=== PATIENT | male | born 1955 | race Caucasian/White ===

== ENCOUNTER 2021-08-28 07:21 | Day surgery (SDC) | payer OTHER ==
--- NOTE | 2021-08-25 11:58 | RAD REPORT ---
EXAM DESCRIPTION: RAD - Chest Pa And Lat (2 Views) - 08/25/2021 11:52 am CLINICAL HISTORY: PREOP SAME DAY SURGERY BED 7 COMPARISON: No comparisons FINDINGS: Lines: None. Lungs: No evidence of edema or pneumonia. Pleural: No significant pleural effusions or pneumothorax. Cardiac: The heart size is within normal limits. Bones: No acute fractures. Other: IMPRESSION: No acute cardiopulmonary disease.
[2021-08-25 12:44] LABS: Absolute Lymphocytes (CBC) 1.6 K/uL (0.7-4.9); Basophils % 0.9 % (0-1.3); Hematocrit 42.5 % (39.6-49.0); Lymphocytes % 25.7 % (15.3-44.8); MPV 8.4 fL (7.6-11.3); RBC Red Blood Cell Count 4.84 M/uL (4.33-5.43)
[2021-08-25 12:51] LABS: Potassium 4.9 mmol/L (3.5-5.1)
[2021-08-28] MEDS: Ringers Lactate 1,000 ML IV ONE ×2 (08:10→08:23)
[2021-08-28] MEDS ORDERED: propofoL 200 MG/20 ML VIAL IV ONE (08:41)
[2021-08-28] MEDS ORDERED: LIDOCAINE 1% MPF 5 ML VIAL ONE (08:41)
--- NOTE | 2021-08-28 09:01 | ENDO RPT ---
[address], [address] COLONOSCOPY PROCEDURE REPORT EXAM DATE: 08/28/2021 PATIENT NAME: Royal Azar MR #: [id number] BIRTHDATE: 1955 ATTENDING: Chencho Schafer M.D. STATUS: outpatient KENNEL OPERATOR: Yarely Olivas RN and Thu Logan CST INDICATIONS: The patient is a 65 yr old Male here for a colonoscopy due to Cologuard Positive Test PROCEDURE PERFORMED: Colonoscopy MEDICATIONS: Per Anesthesia. ESTIMATED BLOOD LOSS: None CONSENT: The patient understands the risks and benefits of the procedure and understands that these risks include, but are not limited to: sedation, allergic reaction, infection, perforation and/or bleeding. Alternative means of evaluation and treatment include, among others: physical exam, x-rays, and/or surgical intervention. The patient elects to proceed with this endoscopic procedure. DESCRIPTION OF PROCEDURE: During intra-op preparation period all mechanical medical equipment was checked for proper function. Hand hygiene and appropriate measures for infection prevention was taken. Procedure, possible complications, alternatives including, but not limited to possibility of bleeding, perforation, tear, infection, sepsis, need for surgery, need for blood transfusion, were explained to the patient. After the risks, benefits and alternatives of the procedure were thoroughly explained, Informed consent was verified, confirmed and timeout was successfully executed by the treatment team. The patient was placed in the left lateral position. A digital rectal exam was performed and revealed an enlarged prostate. After appropriate level of anesthesia, the scope was passed. The EC-[id number] ([id number]) endoscope was introduced through the anus and advanced to the cecum, which was identified by the ileocecal valve. The quality of the prep was good. The instrument was then slowly withdrawn as the colon was fully examined. Scope withdrawal time was 20 minutes. COLON FINDINGS: Mild diverticulosis was noted in the sigmoid colon. Retroflexed views revealed no abnormalities. The scope was then completely withdrawn from the patient and the procedure terminated. ADVERSE EVENTS: There were no complications. IMPRESSIONS: Mild diverticulosis was noted in the sigmoid colon RECOMMENDATIONS: 1. follow-up: office 1 week(s) 2. fiber rich diet 3. increase dietary water 4. no seeds in diet RECALL: Return in 10 year(s) for Colonoscopy. Can do cologuard test in one year. Chencho Schafer M.D. eSigned: Chencho Schafer M.D. 08/28/2021 9:00 AM cc: Yehuda Jones MD CPT CODES: ICD9 CODES: PATIENT NAME: Royal AzarAlin MR#: [id number]
[2021-08-28 09:38] VITALS: BP 102/65; TEMP 97.1; O2SAT 100
--- NOTE | 2021-08-28 23:13 | RAD REPORT ---
EXAM DESCRIPTION: RAD - Colon Barium Enema - 08/28/2021 2:15 pm CLINICAL HISTORY: POSITIVE COLOGUARD COMPARISON: None TECHNIQUE: Single contrast barium enema was performed. Contrast refluxed into the small bowel FINDINGS:. The sigmoid colon measuring approximately 13 centimeters is not well distended contrast. No permanent filling defects, obstructing or constricting lesions visualized within the remainder of colon. Mild diverticulosis is present. IMPRESSION: Sigmoid colon is not well distended. It is uncertain if this is secondary to spasm or pa thology pathology such as a stricture. This should be correlated with recent colonoscopy CT scan may be helpful for further evaluation
--- NOTE | 2021-08-29 18:19 | EKG ---
Test Date: 2021-08-25 Test Time: 11:43:37 Technical Specialist Cytology: RICKY MEASUREMENT RESULTS: Intervals: Rate: 59 WI: 178 QRSD: 86 QT: 390 QTc: 386 [place]: P: 37 WI: 178 QRS: 48 T: 61 INTERPRETIVE STATEMENTS: Sinus bradycardia Otherwise normal ECG Compared to ECG 09/10/2005 07:30:00 Sinus rhythm no longer present Electronically Signed On 08-29-21 18:07:02 CDT by Caden Gómez
== END 2021-08-28 14:50 | disposition home or self-care (01) ==
LOC: OR 07:21
PROVIDERS: ATTEND Surgery
PROC: 0DJD8ZZ Inspection of Lower Intestinal Tract, Via Natural or Artificial Opening Endoscopic (ICD-10-PCS; principal; 2021-08-28 08:30)
DX: R19.5 Other fecal abnormalities (principal); K57.30 Diverticulosis of large intestine without perforation or abscess without bleeding; Z20.822 Contact with and (suspected) exposure to COVID-19; N40.0 Benign prostatic hyperplasia without lower urinary tract symptoms
CPT/HCPCS: 93005; 85025; 80048; 36415; 74270; 71046; 45378; U0003; J2704; J7120